=== PATIENT | male | born 2000 | race American Indian/Alaskan Native ===

== ENCOUNTER 2022-05-03 20:52 | Emergency (ER) | payer MEDICAID ==
[2022-05-03] MEDS ORDERED: hydrOXYzine HCl 25 MG Tab PO ONE (22:11)
[2022-05-03 22:27] LABS: ANION GAP 12.2 mEq/L (7-13)
[2022-05-03 23:43] LABS: AMPHETAMINES,URINE POSITIVE (NEGATIVE); BARBITURATES,URINE NEGATIVE (NEGATIVE); BENZODIAZEPINE,URINE NEGATIVE (NEGATIVE); MDMA (ECSTASY), URINE NEGATIVE (NEGATIVE); METHADONE,URINE NEGATIVE (NEGATIVE); METHAMPHETAMINES,URINE POSITIVE (NEGATIVE); OPIATES,URINE NEGATIVE (NEGATIVE); OXYCODONE,URINE NEGATIVE (NEGATIVE); PHENCYCLIDINE,URINE NEGATIVE (NEGATIVE); TCA,URINE NEGATIVE (NEGATIVE)
== END 2022-05-04 00:02 | disposition home or self-care (01) ==
LOC: DL.ED 20:52
DX: F41.0 Panic disorder [episodic paroxysmal anxiety] (principal); F43.9 Reaction to severe stress, unspecified; F15.10 Other stimulant abuse, uncomplicated; J45.909 Unspecified asthma, uncomplicated; Z72.0 Tobacco use
CPT/HCPCS: 36415; 80053; 80305; 81001; 83735; 84484; 85025; 87086; 93005; 99283; A9270

== ENCOUNTER 2022-05-30 09:28 | Emergency (ER) | payer MEDICAID ==
[2022-05-30] MEDS ORDERED: Lidocaine 2% Viscous Solution 15 ML UD MUCMEM ONE (09:41)
[2022-05-30] MEDS ORDERED: Clindamycin HCl 150 MG Cap PO ONE (09:41)
== END 2022-05-30 09:57 | disposition home or self-care (01) ==
LOC: DL.ED 09:28
DX: K04.7 Periapical abscess without sinus (principal)
CPT/HCPCS: 99282; A9270